=== PATIENT | male | born 1935 | race Caucasian/White ===

== ENCOUNTER → 2017-01-15 | Outpatient (CLI) | payer OTHER, MEDICARE ==
[~2017-01-15] MED LIST: ACET1TAB84 PO; ALBINS/ INH; ALPR-411 PO; BRIM0.2S OPL; CHOL1TAB42 PO; CIPR1SUS5 OPL; HYDR25TA4 PO; MAGN250T3 PO; OXGN; PANT40TA PO; PRED1SUS3 OPL; SPRIN/30 INH; SYMIN160 INH; VNTHFA/IN INH; [UNRECOGNIZED DRUG - CODE] PO
== END | disposition home or self-care (01) ==
LOC: C.LABSPEC 11:00
PROVIDERS: ATTEND Ophthalmology
DX: H16.032 Corneal ulcer with hypopyon, left eye (principal)

== ENCOUNTER → 2017-06-25 | Outpatient (CLI) | payer OTHER, MEDICARE | END | disposition home or self-care (01) | LOC: C.LABSPEC 11:00 | PROVIDERS: ATTEND Ophthalmology | DX: H16.012 Central corneal ulcer, left eye (principal) ==